=== PATIENT | female | born 1950 | race Asian ===

== ENCOUNTER 2023-09-12 07:00 | Day surgery (SDC) | payer OTHER ==
[~2023-09-12] VITALS: Ht 157.5 cm; Wt 61.2 kg
[2023-09-12] MEDS ORDERED: fentaNYL citrate 0.05 MG/ML VIAL ONE (07:29)
[2023-09-12] MEDS ORDERED: LIDOCAINE 2% 100 MG/5 ML UJET TP ONE (07:29)
[2023-09-12] MEDS ORDERED: KETOROLAC 30 MG/ML VIAL ONE (07:56)
== END 2023-09-12 08:50 | disposition home or self-care (01) ==
LOC: MDS 07:00 → MMU 07:00 → MDS 08:50
PROVIDERS: ATTEND Internal Medicine Gastroenterology
DX: K62.5 Hemorrhage of anus and rectum (principal); K64.8 Other hemorrhoids; M81.0 Age-related osteoporosis without current pathological fracture; Z79.899 Other long term (current) drug therapy
CPT/HCPCS: 45350; J1885; J3010